=== PATIENT | female | born 1955 | race Caucasian/White ===

== ENCOUNTER 2017-06-15 14:55 | Emergency (ER) | payer OTHER ==
[~2017-06-15] VITALS: Ht 157.5 cm; Wt 65.8 kg
[~2017-06-15 14:55] MED LIST: BENTYL 20 MG TA20 M1 PO; CARAFATE 1 GM TA1 G1 PO; CYMBALTA20 MG PO; LYRICA 50 MG50 MG PO; PHENERGAN 25 MG25 M1 PO; TRAMADOL 50 MG50 MG PO; ZOFRAN ODT4 MG PO
[2017-06-15] MEDS ORDERED: ESTRACE1 MG PO (15:25)
[2017-06-15] MEDS ORDERED: NORVASC2.5 M1 PO (15:26)
[2017-06-15 15:50] LABS: INFLUENZA A ANTIGEN None Detected (None Detect); INFLUENZA B ANTIGEN None Detected (None Detect)
[2017-06-15] MEDS ORDERED: AUGMENTIN 875-1 EACH PO (15:55)
[2017-06-15 16:12] VITALS: BP 135/90
== END 2017-06-15 16:13 | disposition home or self-care (01) ==
LOC: M.ERS 14:55
PROVIDERS: Emergency Medicine Emergency Medical Services
DX: J01.90 Acute sinusitis, unspecified (principal); I10 Essential (primary) hypertension; E11.9 Type 2 diabetes mellitus without complications; M79.7 Fibromyalgia; Z90.710 Acquired absence of both cervix and uterus; F17.210 Nicotine dependence, cigarettes, uncomplicated

== ENCOUNTER 2017-07-13 10:34 | Inpatient (IN) | payer OTHER ==
[2017-07-13] VITALS (8 sets, daily range): BP systolic 95–123; BP diastolic 51–67
[~2017-07-13] VITALS: Ht 157.5 cm; Wt 68.0 kg
[~2017-07-13 10:34] MED LIST changes: +AUGMENTIN 875-1 EACH PO; +ESTRACE1 MG PO; +NORVASC2.5 M1 PO
[2017-07-13 11:24] LABS: INFLUENZA A ANTIGEN None Detected (None Detect); INFLUENZA B ANTIGEN None Detected (None Detect)
[2017-07-13 12:03] LABS: HEMATOCRIT 40.4 % (37.0-47.0); HEMOGLOBIN 13.7 gm/dL (12.0-15.0); MCH 30.4 pg (26.0-34.0); MCHC 33.9 g/dL (28.0-37.0); MCV 89.6 fL (80.0-100.0); MPV 8.9 fl. (7.2-11.1); NUCLEATED RBCS 0 /100WBC; PLATELET COUNT* 171 thou/uL (150-400); RBC 4.51 mil/uL (4.20-5.00); RDW-CV 13.4 % (10.5-14.5); WBC 27.8 thou/uL (4.0-11.0)
[2017-07-13 12:11] LABS: CALCIUM 8.5 mg/dL (8.5-10.1); CREATININE 1.7 mg/dL (0.6-1.3)
[2017-07-13 12:13] LABS: POTASSIUM 2.8 mmol/L (3.5-5.1)
[2017-07-13 12:34] LABS: ABSOLUTE BASOPHILS 0.3 thou/uL (0.0-0.2); ABSOLUTE LYMPHOCYTES 0.8 thou/uL (0.8-5.3); ABSOLUTE MONOCYTES 1.1 thou/uL (0.0-1.2); ABSOLUTE NEUTROPHILS 25.6 thou/uL (1.6-8.1); METAMYELOCYTES 2 %; PLATELET ESTIMATE ADEQUATE
[2017-07-13 12:35] LABS: TOXIC GRANULATION 2+
--- NOTE | 2017-07-13 14:49 | NUR ---
PER DR. MANTILLA. DO NOT HANG NEW ORDER FOR 2 L OF FLUID; DUPLICATE MEDICATION WERE PUT IN WITH SEPSIS ORDRS.
[2017-07-13 15:10] LABS: APTT 38.1 Seconds (25.0-31.3); INR 1.2; PROTIME 11.3 Seconds (9.20-11.50)
[2017-07-13 15:48] LABS: URINE BILIRUBIN NEGATIVE (Negative); URINE BLOOD NEGATIVE (Negative); URINE CLARITY CLEAR; URINE COLOR YELLOW; URINE GLUCOSE-RANDOM NEGATIVE (Negative); URINE KETONES TRACE (Negative); URINE LEUKOCYTES-REFLEX TRACE (Negative); URINE NITRITE-REFLEX NEGATIVE (Negative); URINE PROTEIN 1+ (Negative); URINE SPECIFIC GRAVITY 1.015 (1.005-1.030)
[2017-07-13 15:57] LABS: HYALINE CASTS >10 Many /LPF (None Seen)
[2017-07-13 15:58] LABS: SQUAMOUS >10 Many /LPF (0-3); WBC CLUMPS Few (None Seen)
[2017-07-13 15:59] LABS: BACTERIA-REFLEX 1-9 Few /HPF (None Seen); CRYSTALS None Seen /LPF (None Seen); URINE RBC 0-2 Rare /HPF (0-2); URINE WBC-REFLEX 6-15 Few /HPF (0-5)
[2017-07-13 16:00] LABS: MUCUS None Seen strn/LPF (None Seen)
[2017-07-13 16:08] LABS: CALCIUM 7.6 mg/dL (8.5-10.1); CREATININE 1.4 mg/dL (0.6-1.3)
[2017-07-13 16:12] LABS: ALBUMIN 2.2 g/dL (3.4-5.0); MAGNESIUM 1.4 mg/dL (1.8-2.4); PHOSPHORUS* 3.2 mg/dL (2.5-4.9); POTASSIUM 2.9 mmol/L (3.5-5.1); TOTAL BILIRUBIN 0.3 mg/dL (<0.1-1.0); TOTAL PROTEIN 6.2 g/dL (6.4-8.2)
--- NOTE | 2017-07-13 18:40 | NUR ---
While packing pt up to go to ICU, pt was handed a medicine cup with 2 earrings and a necklace. Pt thought it was a cup of medicine so she swallowed an earring and a necklace. Primary ICU nurse was notified. Dr. Vela was informed and order for STAT GI consult was placed. Pt denied any symptoms.
--- NOTE | 2017-07-13 23:49 | NUR ---
PT ADMITTED TO ICU BED 2 AT 1817 ON SEPSIS PROTOCOL. PT HAS RECEIVED 30ML/KG NS BOLUS IN ER, IVF INFUSING ORDERED. SEE ADMISSION ASSESSMENT AND HISTORY. THIS RN WAS INFORMED BY CONTINUITY CLERK THAT PT HAD REMOVED HER EARRINGS AND NECKLACE AND RN PLACED THEM IN A MED CUP, THEN HANDED IT TO THE PT. PT THOUGHT RN WAS GIVING HER A CUP OF PILLS TO TAKE AND SUBSEQUENTLY SWALLOWED THE NECKLACE AND ONE OF THE JOSÉ LUIS EARRINGS (APPROXIMATELY 1/4" SQUARE CUT). CONTINUITY CLERK NOTIFIED DR GIMENEZ WHO ORDERED GI CONSULT. THIS RN SPOKE TO DR MAZA, WHO ORDERED KUB IN AM AND TO MONITOR BOWEL MOVEMENTS. K AND MAG NOTED TO BE LOW, BOTH WERE REPLACED PER ELECTROLYTE PROTOCOL AND REDRAW ORERED FOR 0130. PT HAS DENIED CHEST PAIN, ABD PAIN, SOA, AND ANY OTHER DISCOMFORT SINCE ARRIVAL TO THE UNIT. PT WAS ORIENTED TO UNIT AND CALL LIGHT, VERBALIZED UNDERSTANDING. FALL PRECAUTIONS REVIEWED AND FALL AGREEMENT SIGNED. CALL LIGHT WITHIN REACH.
[2017-07-14] VITALS (12 sets, daily range): BP systolic 94–125; BP diastolic 58–78
[2017-07-14 01:30] LABS: MAGNESIUM 1.9 mg/dL (1.8-2.4)
[2017-07-14 04:55] LABS: ABSOLUTE LYMPHOCYTES 0.5 thou/uL (0.8-5.3); ABSOLUTE MONOCYTES 0.4 thou/uL (0.0-1.2); EOSINOPHILS 0.1 %; HEMATOCRIT 36.3 % (37.0-47.0); HEMOGLOBIN 12.2 gm/dL (12.0-15.0); LYMPHOCYTES 2.2 %; MCH 30.4 pg (26.0-34.0); MCHC 33.6 g/dL (28.0-37.0); MCV 90.5 fL (80.0-100.0); MONOCYTES 1.9 %; MPV 9.1 fl. (7.2-11.1); NUCLEATED RBCS 0 /100WBC; PLATELET COUNT* 164 thou/uL (150-400); POLYS 95.8 %; RBC 4.01 mil/uL (4.20-5.00); RDW-CV 13.6 % (10.5-14.5); WBC 20.9 thou/uL (4.0-11.0)
[2017-07-14 05:09] LABS: CALCIUM 8.5 mg/dL (8.5-10.1); CREATININE 0.7 mg/dL (0.6-1.3); POTASSIUM 3.7 mmol/L (3.5-5.1)
--- NOTE | 2017-07-14 05:54 | NUR ---
PROGRESSING TOWARD GOALS, LAB VALUES TRENDING TOWARD NORMAL. VSS. O2 SAT REMAINS >92% ON 3L O2. IVF INFUSING ORDERED. KUB COMPLETED THIS AM PER DR MAZA, JEWELRY VISIBLE IN BOWEL. PT CONTINUES TO DENY ABDOMINAL PAIN OR ANY OTHER DISCOMFORT. CALL LIGHT WITHIN REACH.
--- NOTE | 2017-07-14 12:33 | NUR ---
Patient remains somnulent see glucose sheet. Patient non verbal unless frequently questioned. UDS negative. gap closed at this time.
[2017-07-14 13:10] LABS: GLYCOHEMOGLOBIN (HGB A1C) 8.3 % (4.8-5.6)
--- NOTE | 2017-07-14 18:35 | NUR ---
PATIENT CO FLANK PAIN RECIEVED ORDER FOR NORCO. TAKING PO WELL BM TIMES 2. HAVE NOT FOUND JEWELRY.
--- NOTE | 2017-07-14 20:30 | NUR ---
ASSUMED CARE OF PATIENT FROM ICU TRANSFER AT THIS TIME. AGREE WITH ICU NURSE ASSESSMENT AND CHARTING. PT IS ORIENTED TO ROOM, CALL LIGHT IN REACH AND FREE OF PAIN OR SHORTNESS OF BREATH. WILL CONT TO MONITOR.
[2017-07-15] VITALS: BP 113/79
[2017-07-15 04:00] VITALS: BP 141/78
[2017-07-15 05:26] LABS: ABSOLUTE LYMPHOCYTES 1.1 thou/uL (0.8-5.3); ABSOLUTE MONOCYTES 0.6 thou/uL (0.0-1.2); ABSOLUTE NEUTROPHILS 15.9 thou/uL (1.6-8.1); HEMATOCRIT 36.3 % (37.0-47.0); HEMOGLOBIN 12.1 gm/dL (12.0-15.0); LYMPHOCYTES 6.4 %; MCH 30.1 pg (26.0-34.0); MCHC 33.5 g/dL (28.0-37.0); MONOCYTES 3.1 %; MPV 9.1 fl. (7.2-11.1); NUCLEATED RBCS 0 /100WBC; PLATELET COUNT* 185 thou/uL (150-400); POLYS 90.5 %; RBC 4.03 mil/uL (4.20-5.00); RDW-CV 14.1 % (10.5-14.5); WBC 17.6 thou/uL (4.0-11.0)
[2017-07-15 05:54] LABS: CALCIUM 9.4 mg/dL (8.5-10.1); CREATININE 0.6 mg/dL (0.6-1.3); MAGNESIUM 1.9 mg/dL (1.8-2.4); POTASSIUM 3.3 mmol/L (3.5-5.1); TOTAL BILIRUBIN 0.3 mg/dL (<0.1-1.0)
--- NOTE | 2017-07-15 07:53 | NUR ---
TOOK OVER CARE OF PT AT 0100, PT A/OX4, SR ON THE MONITOR, RA, UP WITH SBA, IV FLUIDS INFUSING, POTASSIUM REPLACED X1 WITH SECOND DOSE NEEDED IN 2 HRS-DAY RN INFORMED DURING BED SIDE REPORT, HOURLY ROUNDING/FALL PRECAUTIONS IN PLACE, ASSESSMENT COMPLETED BY PREVIOUS NIGHT-RN, CORINNE, WILL CONT TO MONITOR.
[2017-07-15 08:00] VITALS: BP 139/89
--- NOTE | 2017-07-15 10:53 | CON ---
[address] [address] CONSULTATION Name: WILD ROSEN Room: [address] IN M.R.#: [id number] Admission: 07/13/17 Attend Phys: Woody Vela MD Discharge: Date of : 55 Report #: [id number] THIS REPORT FOR: //name// CC: Woody Elam DATE OF SERVICE: 07/14/2017 ATTENDING PHYSICIAN: Woody Vela M.D. REASON FOR EVALUATION: Gram-positive septicemia, the patient with severe pharyngitis, positive rapid strep. HISTORY OF PRESENT ILLNESS: Chart reviewed, patient examined. This is a 62-year-old with history of diabetes mellitus. She has also got fibromyalgia, longtime smoker who was evaluated in the Emergency Room roughly a month ago with complaints of facial discomfort with diagnosis of acute sinusitis. She has had ongoing issues since that time, developed worsening sore throat over the course of last few days, very difficult to swallow. She described swollen glands that were quite tender bilaterally, particularly that was worse on the right. She did have headaches, congestion, which were persistent and subsequent fevers. She was evaluated and was found to have a positive rapid strep. Due to some concerns about some hemodynamic instability she was admitted. She has been placed in intensive care unit, was confirmed to have positive blood cultures with Gram-positive cocci. CT of the neck showed sphenoid and right maxillary sinus disease, mucosal thickening, air fluid levels, mildly prominent jugulodigastric and cervical lymph nodes bilaterally. She was started empirically on vancomycin as well as ceftriaxone, still has a persistent sore throat. She is not encephalopathic. Denies any dyspnea. Overall, she is slightly better than admission. ALLERGIES: None known. MEDICATIONS: Include ceftriaxone, pantoprazole, vancomycin, p.r.n. analgesics, received methylprednisolone as well. PAST MEDICAL HISTORY: Fibromyalgia, hypertension, diabetes mellitus non-insulin requiring, diagnosed in the last few months; hysterectomy, history of depression. SOCIAL HISTORY: Smokes a pack a day for the last 30 years. No ethanol. No illicit drug use. FAMILY HISTORY: Noncontributory. REVIEW OF SYSTEMS: As above. [place] [address] CONSULTATION Name: WILD ROSEN Room: [address] IN [facility]#: [id number] Admission: 07/13/17 Attend Phys: Woody Vela MD Discharge: Date of : 55 Report #: [id number] complaints at this point. PHYSICAL EXAMINATION: GENERAL: She appears somewhat chronically ill with an acute component. She is not overtly toxic. She is not encephalopathic. VITAL SIGNS: Temperature 98.6, pulse 99, respirations 16, blood pressure 94/58. SKIN: Warm, dry, no rashes. HEENT: Remarkable for some discomfort associated with neck and some adenopathy. NECK: Supple. LUNGS: Diminished breath sounds, scattered crackles at the bases. HEART: Regular. Borderline tachycardic. May have a soft systolic murmur. ABDOMEN: Soft, nontender, nondistended. There are no peritoneal signs. GENITOURINARY: Deferred. RECTAL: Deferred. LABORATORY DATA: NT-proBNP elevated at 1159. Glucose of 292 most recently. Plain film of the abdomen otherwise fairly unremarkable. Lactic acid initially 3.5, repeat this morning was 1.1. Rapid strep was positive. Influenza antigen was not detected for A or B. Chest x-ray, no acute process. Initial CBC: White count of 27.8, repeat was 20.9, H and H 12.2 and 36.3, platelets of 164. Electrolytes: Sodium 137, potassium 3.7, chloride 104, bicarbonate is 23, BUN and creatinine 24 and 0.7. Blood cultures as described above, 2/2 with Gram-positive cocci. Urinalysis, 6-15 white cells, 1-9 bacteria. ASSESSMENT: Gram-positive septicemia, suspect the group A strep. In the absence of hypersensitivities, we will adjust antimicrobial therapy, utilize Unasyn at this point. We will await culture results and see how she responds clinically. She will need several days of parenteral therapy, perhaps transition to oral to complete 2-3 week course. At this point, there does not appear to be any lung involvement. We have to monitor expectantly. <ELECTRONICALLY SIGNED> By: Shawn Barillas MD 07/15/17 1053 [id number] [id number] Barillas MD /nt
[2017-07-15 12:00] VITALS: BP 115/63
--- NOTE | 2017-07-15 13:52 | NUR ---
Nutrition: Pt assessed for possible DX of severe sepsis. Pt is afebrile. Wt: 142#. 2gm na diet. Eating well. Alb 2, prealb 8.6, BG 300s. Spoke with RN - RD will order a CHO count added pt's diet. WBC 17.6. Altered nutrition-related lab values related to BG as evidenced by labs above. 2gm Na with CHO count diet order. GOAL: better BG control. Mild risk.
--- NOTE | 2017-07-15 13:59 | 2DMMODE ---
[place] [address] 2 D/M-MODE ECHOCARDIOGRAM Name: WILD ROSEN Room: [address] IN [facility]#: [id number] Admission: 07/13/17 Attend Phys: Woody Vela, Discharge: Date of : 55 Date of Service: 07/15/17 1359 Report #: [id number] THIS REPORT FOR: //name// APPROVED REPORT Study performed: 07/15/2017 10:25:45 EXAM: Comprehensive 2D, Doppler, and color-flow Echocardiogram Patient Location: In-Patient Room #: [facility] Status: routine BSA: 1.65 HR: 91 bpm BP: 139/893 mmHg Rhythm: NSR Other Information Study Quality: Good Indications Sepsis Tachycardia 2D Dimensions LVEF(%): 68.36 (>50%) IVSd: 10.37 (7-11mm) LVOT Diam: 19.67 (18-24mm) LVDd: 40.12 mm PWd: 9.29 (7-11mm) Ascending Ao: 35.17 (22-36mm) LVDs: 24.99 (25-40mm) Aortic Root: 25.16 mm Hadley's LVEF: 68.36 % Volumes Left Atrial Volume (Systole) LA ESV Index: 23.90 mL/m2 Aortic Valve AoV Peak Josiah.: 2.02 m/s AO Peak Gr.: 16.27 mmHg LVOT Max P.63 mmHg AO Mean Gr.: 9.61 mmHg LVOT Mean P.26 mmHg LVOT Max V: 0.81 m/s AO V2 VTI: 38.95 cm LVOT Mean V: 0.51 m/s MICH (VTI): 1.31 cm2 LVOT V1 VTI: 16.[place] [address] 2 D/M-MODE ECHOCARDIOGRAM Name: WILD ROSEN Room: [address] IN .R.#: [id number] Admission: 07/13/17 Attend Phys: Woody Vela, Discharge: Date of : 55 Date of Service: 07/15/17 1359 Report #: [id number] E/A Ratio: 0.87 MV Decel. Time: 163.68 ms MV E Max Josiah.: 1.00 m/s MV PHT: 47.47 ms MVA (PHT): 4.63 cm2 TDI E/Lateral E': 9.09 E/Medial E': 10.00 Medial E' Josiah.: 0.10 m/s Lateral E' Josiah.: 0.11 m/s Pulmonary Valve PV Peak Josiah.: 0.75 m/s PV Peak Gr.: 2.28 mmHg Tricuspid Valve TR Peak Gr.: 22.03 mmHg RVSP: 27.00 mmHg Left Ventricle The left ventricle is normal size. There is normal LV segmental wall motion. There is normal left ventricular wall thickness. Left ventricular systolic function is normal. The left ventricular ejection fraction is within the normal range. LVEF is 60-65%. Grade I - abnormal relaxation pattern. Right Ventricle The right ventricle is normal size. The right ventricular systolic function is normal. Atria The left atrium size is normal. The right atrium size is normal. Aortic Valve Aortic valve is possibly bicuspid. Trace aortic regurgitation. There is no aortic valvular stenosis. Mitral Valve The mitral valve is normal in structure. Mild mitral regurgitation. No evidence of mitral valve stenosis. Tricuspid Valve The tricuspid valve is normal in structure. Trace tricuspid regurgitation. The RVSP is ____27___ mmHg. Pulmonic Valve Pulmonic valve is not well visualized. [place] [address] 2 D/M-MODE ECHOCARDIOGRAM Name: WILD ROSEN Room: [address] IN [facility].#: [id number] Admission: 07/13/17 Attend Phys: Woody Vela, Discharge: Date of : 55 Date of Service: 07/15/17 1359 Report #: [id number] regurgitation. Great Vessels The aortic root is normal in size. IVC is normal in size and collapses with >50% inspiration Pericardium There is no pericardial effusion. <Conclusion> LVEF is 60-65%. Mild mitral regurgitation. <ELECTRONICALLY SIGNED> By: Chip Wetzel MD, FACC 07/15/17 1359 1359 1359 Chip Wetzel MD, FACC /INF
[2017-07-15 14:00] VITALS: BP 134/82
--- NOTE | 2017-07-15 15:59 | NUR ---
CM ASSESSMENT: Pt is A&O. Resides at home with her and children. Independent with ADLs, continues to work outside of the home. No DME. No hx of HH or SNF. Supportive family that is invovled in POC. Goal is to return home once medically stable.
[2017-07-15 20:00] VITALS: BP 130/83
[2017-07-16] VITALS: BP 125/71
--- NOTE | 2017-07-16 02:41 | NUR ---
PT A/OX4, SR ON THE MONITOR, RA, VSS, UP SBA TO BATHROOM, REPORTED SHE IS FREE FROM SOA/PAIN, REQUESTED TYLENOL PT STATED IT HELPS HER SLEEP, MEDS/ASSESSMENT PER CHARTING, HOURLY ROUNDING/FALL PRECAUTIONS IN PLACE, HAT PLACED IN BATHROOM TOILET FOR MONITORING STOOLS DUE TO PT SWALLOWED PERSONAL ITEMS WHILE IN ED OR ICU, PT STATED SHE DOESN'T THINK SHE WILL PASS IT WHILE SHE IS HERE AND SHE WILL LOOK IN HER BM FOR IT, EDUCATED PT I AM ABLE TO LOOK AT HER STOOLS WHEN SHE HAS ONE, REQUESTED PT CONTACT ME WHEN SHE HAS A BM, PT STATED SHE'S HAD A FEW ALREADY THE LAST 2 DAYS, WILL CONT TO MONITOR.
[2017-07-16 04:07] VITALS: BP 146/90
[2017-07-16 05:10] LABS: ABSOLUTE MONOCYTES 0.9 thou/uL (0.0-1.2); ABSOLUTE NEUTROPHILS 12.7 thou/uL (1.6-8.1); BASOPHILS 0.2 %; HEMATOCRIT 36.4 % (37.0-47.0); HEMOGLOBIN 12.1 gm/dL (12.0-15.0); LYMPHOCYTES 12.7 %; MCH 29.9 pg (26.0-34.0); MCHC 33.3 g/dL (28.0-37.0); MCV 89.8 fL (80.0-100.0); MONOCYTES 5.6 %; MPV 8.9 fl. (7.2-11.1); NUCLEATED RBCS 0 /100WBC; PLATELET COUNT* 206 thou/uL (150-400); POLYS 81.5 %; RBC 4.06 mil/uL (4.20-5.00); RDW-CV 13.6 % (10.5-14.5); WBC 15.6 thou/uL (4.0-11.0)
[2017-07-16 05:22] LABS: ALBUMIN 1.9 g/dL (3.4-5.0); CALCIUM 9.7 mg/dL (8.5-10.1); CREATININE 0.7 mg/dL (0.6-1.3); TOTAL BILIRUBIN 0.2 mg/dL (<0.1-1.0); TOTAL PROTEIN 5.6 g/dL (6.4-8.2)
[2017-07-16 05:34] LABS: PREALBUMIN 12.7 mg/dL (18.0-35.7)
[2017-07-16 08:00] VITALS: BP 152/84
--- NOTE | 2017-07-16 09:04 | NUR ---
ASSUMED PT CARE AT 0730, FULL ASSESMENT DONE CHARTED. PT A/O X4, DENIES PAIN, HAD BM THIS AM, NO SIGN OF PTS NECKLACK, EARING. PT STATES SHE"DOES NOT CARE IF SHE GETS IT BACK". PT HOPEFUL TO GO HOME SOON.VSS, SR ON THE MONITOR. PT UP AD CHAD IN ROOM. USES CALL LIGHT APPROPRIALY. WILL CONTINUE WITH PLAN OF CARE.
[2017-07-16 12:00] VITALS: BP 151/91
[2017-07-16 16:00] VITALS: BP 135/74
[2017-07-16 20:00] VITALS: BP 144/91
[2017-07-17] VITALS: BP 168/91
[2017-07-17 04:00] VITALS: BP 135/83
--- NOTE | 2017-07-17 06:45 | NUR ---
NO ACUTE CHANGES WITH PT OVER NIGHT, PT A/OX4, SR ON THE MONITOR, RA, UP AD CHAD, PAIN TO RIGHT HIP/BACK TREATED X2, MEDS/ASSESSMENT PER CHARTING, HOURLY ROUNDING/FALL PRECAUTIONS IN PLACE, VSS, WILL CONT TO MONITOR.
[2017-07-17 08:00] VITALS: BP 130/82
--- NOTE | 2017-07-17 08:42 | NUR ---
PT SITTING UP IN CHAIR IN ROOM, APPEARS ALERT O X 4, DENIES CHEST PAIN, SOB, PAIN OR DISCOMFORT, HOPING TO D/C TODAY
[2017-07-17] MEDS ORDERED: AMOXICILLIN500 M1 PO (10:59)
[2017-07-17 11:09] VITALS: BP 130/82
[2017-07-17 11:57] VITALS: BP 156/83
== END 2017-07-17 12:00 | disposition home or self-care (01) | DRG 871 ==
LOC: M.ERS 10:34 → M.TBA-ER 13:57 → M.ICU 13:57 → M.2W 07-14 21:37
PROVIDERS: Emergency Medicine Emergency Medical Services; Nurse Practitioner Family; ADMIT Internal Medicine
DX: A40.0 Sepsis due to streptococcus, group A (principal); N17.0 Acute kidney failure with tubular necrosis; J96.00 Acute respiratory failure, unspecified whether with hypoxia or hypercapnia; L03.221 Cellulitis of neck; L03.313 Cellulitis of chest wall; T18.9XXA Foreign body of alimentary tract, part unspecified, initial encounter; F17.210 Nicotine dependence, cigarettes, uncomplicated; J02.9 Acute pharyngitis, unspecified; J32.9 Chronic sinusitis, unspecified; E87.6 Hypokalemia; X58.XXXA Exposure to other specified factors, initial encounter; E86.0 Dehydration; E11.65 Type 2 diabetes mellitus with hyperglycemia; J44.9 Chronic obstructive pulmonary disease, unspecified; M79.7 Fibromyalgia; I10 Essential (primary) hypertension; Z90.710 Acquired absence of both cervix and uterus; Z79.899 Other long term (current) drug therapy; Y93.89 Activity, other specified; Y92.89 Other specified places as the place of occurrence of the external cause; Y99.8 Other external cause status; Z28.21 Immunization not carried out because of patient refusal